=== PATIENT | male | born 1985 | race Caucasian/White ===

== ENCOUNTER 2018-07-24 02:06 | Emergency (ER) | payer BC ==
--- NOTE | 2018-07-24 02:38 | ED Physician Chart ---
ED Chief Complaint/HPI - Patient Information Date Seen:: 07/17/18 Time Seen:: 02:30 Chief Complaint:: back pain History of Present Illness:: Patient was at work tonight and spontaneously developed upper and mid back pain. No trauma. Allergies:: Allergies Allergy/AdvReac Type Severity Reaction Status Date / Time No Known Allergies Allergy Verified 07/17/18 02:54 Vitals:: Vital Signs - 8 hr 07/24/18 02:10 Temp 98.2 F HR 75 RR 18 BP 125/81 O2 Sat % 97 Historian:: Patient Review:: Nurse's Note Reviewed ED Review of Systems - Review of Systems General/Constitutional: No fever, No chills Skin: No skin lesions Head: No headache Eyes: No loss of vision ENT: No earache Neck: No neck pain Cardio Vascular: No chest pain, No palpitations Pulmonary: No SOB GI: No nausea, No vomiting, No diarrhea G/U: No dysuria Musculoskeletal: Bone or joint pain, Back pain, Muscle pain Psychiatric: No prior psych history Hematopoietic: No bruising Allergic/Immuno: No urticaria Neurological: No syncope, No focal symptoms ED Past Medical History - Past Medical History Past Medical History: Other (chronic back pain) Family History: None Social History: Smoker, Alcohol Surgical History: None Psychiatricy History: None Family Medical History - Family Member Mother History Unknown: Yes ED Physical Exam - Physical Examination General/Constitutional: Awake, Well-developed, well-nourished, Alert, No distress, GCS 15, Non-toxic appearing, Ambulatory Other Gen/Cons comments:: 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: Atraumatic Eyes: Lids, conjuctiva normal, PERRL, EOMI Skin: Nl inspection, No rash, No skin lesions, No ecchymosis, Well hydrated, No lymphadenopathy ENMT: External ears, nose nl, Nasal exam nl, Lips, teeth, gums nl Neck: Nontender, Full ROM w/o pain, No JVD, No nuchal rigidity, No bruit, No mass, No stridor Respiratory: Nl effort/Exclusion, Clear to Auscultation, No Wheeze/Rhonchi/Rales Cardio Vascular: RRR, No murmur, gallop, rubs, NL S1 S2 GI: No tenderness/rebounding/guarding, No organomegaly, No hernia, Normal BS's, Nondistended, No mass/bruits, No McBurney tenderness : No CVA tenderness Extremities: No tenderness or effusion, Full ROM, normal strength in all extremities, No edema, Normal digits & nails Neuro/Psych: Alert/oriented, DTR's symmetric, Normal sensory exam, Normal motor strength, Judgement/insight normal, Mood normal, Normal gait, No focal deficits Misc: Normal back, No paraspinal tenderness ED Septic Shock - . Is Septic Shock (SBP<90, OR Lactate>4 mmol\L) present?: No - <6hrs of presentation: Vital Signs: Vital Signs - 8 hr 07/24/18 02:10 Temp 98.2 F HR 75 RR 18 BP 125/81 O2 Sat % 97 ED Reassessment (Disposition) - Reassessment Reassessment Condition:: Unchanged - Diagnosis Diagnosis:: Acute exacerbation of chronic back pain - Aftercare/Follow up Instructions Aftercare/Follow-Up Instructions:: Refer to Discharge Instructions - Patient Disposition Discharge/Transfer:: Home Condition at Disposition:: Stable, Unchanged
== END 2018-07-24 03:10 | disposition home or self-care (01) ==
LOC: ER 02:06
DX: M54.6 Pain in thoracic spine (principal); G89.29 Other chronic pain; F17.200 Nicotine dependence, unspecified, uncomplicated
CPT/HCPCS: 99283; 96372; J1885; Z7502

== ENCOUNTER 2018-08-09 21:08 | Emergency (ER) | payer BC ==
--- NOTE | 2018-08-09 21:35 | ED Physician Chart ---
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 FOOT PAIN Allergies:: Allergies Allergy/AdvReac Type Severity Reaction Status Date / Time No Known Allergies Allergy Verified 07/17/18 02:54 Vitals:: Vital Signs - 8 hr 08/09/18 21:18 Temp 98.4 F HR 89 RR 17 BP 109/58 O2 Sat % 97 ED Review of Systems - Review of Systems General/Constitutional: No fever, No chills, No weight loss, No weakness, No diaphoresis, No edema, No loss of appetite Skin: Skin lesions Head: No headache, No light-headedness Eyes: No loss of vision, No pain, No diplopia ENT: No earache, No nasal drainage, No sore throat, No tinnitus Neck: No neck pain, No swelling, No thyromegaly, No stiffness, No mass noted Cardio Vascular: No chest pain, No palpitations, No PND, No orthopnea, No edema Pulmonary: No SOB, No cough, No sputum, No wheezing GI: No nausea, No vomiting, No diarrhea, No pain, No melena, No hematochezia, No constipation, No hematemesis G/U: No dysuria, No frequency, No hematuria Musculoskeletal: No bone or joint pain, No back pain, No muscle pain Endocrine: No polyuria, No polydipsia Hematopoietic: No lymphadenopathy Allergic/Immuno: Urticaria, No angioedema Neurological: No syncope, No focal symptoms, No weakness, No paresthesia, No headache, No seizure, No dizziness, No confusion, No vertigo ED Past Medical History - Past Medical History Past Medical History: Other (ETOH AND DRUG ABUSE) Family Medical History - Family Member Mother History Unknown: Yes ED Physical Exam - Physical Examination General/Constitutional: Well-developed, well-nourished Head: Atraumatic Eyes: Lids, conjuctiva normal Other Skin comments:: FOOT 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 Is Septic Shock (SBP<90, OR Lactate>4 mmol\L) present?: No - <6hrs of presentation: Vital Signs: Vital Signs - 8 hr 08/09/18 21:18 Temp 98.4 F HR 89 RR 17 BP 109/58 O2 Sat % 97 ED Reassessment (Disposition) - Reassessment Reassessment:: FOOT PAINS WITH DESQUAMATION - Aftercare/Follow up Instructions Medication Prescribed:: DIFLUCAN CLOTRIMAZOLE - Patient Disposition Discharge/Transfer:: Home Condition at Disposition:: Stable
== END 2018-08-09 21:30 | disposition home or self-care (01) ==
LOC: ER 21:08
DX: M79.672 Pain in left foot (principal); M79.671 Pain in right foot; R23.4 Changes in skin texture; Z59.0 Homelessness
CPT/HCPCS: Z7502

== ENCOUNTER 2018-08-17 02:17 | Emergency (ER) | payer BC ==
--- NOTE | 2018-08-17 02:58 | ED Physician Chart ---
ED Chief Complaint/HPI - Patient Information Date Seen:: 08/17/18 Time Seen:: 02:55 Chief Complaint:: sore throat back pain History of Present Illness:: 32 yr old male here for similar complaints at 3 to 3 hodpitals around [facility] n sleeping in the er bed not wanting to talk states his sore throat keeps coming back and his back pain from too much work and too much lifting Allergies:: Allergies Allergy/AdvReac Type Severity Reaction Status Date / Time No Known Allergies Allergy Verified 08/17/18 02:18 Vitals:: Vital Signs - 8 hr 08/17/18 02:20 Temp 98.1 F HR 74 RR 18 BP 110/57 O2 Sat % 99 ED Review of Systems - Review of Systems General/Constitutional: No fever, No chills, No weight loss, No weakness, No diaphoresis, No edema, No loss of appetite Skin: No skin lesions, No rash, No bruising Head: No headache, No light-headedness Eyes: No loss of vision, No pain, No diplopia ENT: Sore throat Neck: No neck pain, No swelling, No thyromegaly, No stiffness, No mass noted Cardio Vascular: No chest pain, No palpitations, No PND, No orthopnea, No edema Pulmonary: No SOB, No cough, No sputum, No wheezing GI: No nausea, No vomiting, No diarrhea, No pain, No melena, No hematochezia, No constipation, No hematemesis G/U: No dysuria, No frequency, No hematuria Musculoskeletal: Back pain Endocrine: No polyuria, No polydipsia Psychiatric: No prior psych history, No depression, No anxiety, No suicidal ideation Hematopoietic: No bruising, No lymphadenopathy Allergic/Immuno: No urticaria, No angioedema Neurological: No syncope, No focal symptoms, No weakness, No paresthesia, No headache, No seizure, No dizziness, No confusion, No vertigo Family Medical History - Family Member Mother History Unknown: Yes ED Physical Exam - Physical Examination General/Constitutional: Awake, Well-developed, well-nourished, Alert, No distress, GCS 15, Non-toxic appearing, Ambulatory Head: Atraumatic Eyes: Lids, conjuctiva normal, PERRL, EOMI Skin: Nl inspection, No rash, No skin lesions, No ecchymosis, Well hydrated, No lymphadenopathy ENMT: External ears, nose nl, Nasal exam nl, Lips, teeth, gums nl Neck: Nontender, Full ROM w/o pain, No JVD, No nuchal rigidity, No bruit, No mass, No stridor Respiratory: Nl effort/Exclusion, Clear to Auscultation, No Wheeze/Rhonchi/Rales Cardio Vascular: RRR, No murmur, gallop, rubs, NL S1 S2 GI: No tenderness/rebounding/guarding, No organomegaly, No hernia, Normal BS's, Nondistended, No mass/bruits, No McBurney tenderness : No CVA tenderness Extremities: No tenderness or effusion, Full ROM, normal strength in all extremities, No edema, Normal digits & nails Neuro/Psych: Alert/oriented, DTR's symmetric, Normal sensory exam, Normal motor strength, Judgement/insight normal, Mood normal, Normal gait, No focal deficits Misc: Normal back, No paraspinal tenderness ED Assessment - Assessment General Assessment: sore throat back pain ED Septic Shock - . Is Septic Shock (SBP<90, OR Lactate>4 mmol\L) present?: No - <6hrs of presentation: Vital Signs: Vital Signs - 8 hr 08/17/18 02:20 Temp 98.1 F HR 74 RR 18 BP 110/57 O2 Sat % 99 ED Reassessment (Disposition) - Reassessment Reassessment:: sore throat back pain - Diagnosis Diagnosis:: as above - Patient Disposition Discharge/Transfer:: Home Condition at Disposition:: Stable
== END 2018-08-17 03:13 | disposition home or self-care (01) ==
LOC: ER 02:17
DX: J02.9 Acute pharyngitis, unspecified (principal); M54.9 Dorsalgia, unspecified
CPT/HCPCS: Z7502

== ENCOUNTER 2018-08-19 03:54 | Emergency (ER) | payer BC ==
--- NOTE | 2018-08-19 04:15 | ED Physician Chart ---
ED Chief Complaint/HPI - Patient Information Date Seen:: 08/19/18 Time Seen:: 04:10 Chief Complaint:: Sore throat History of Present Illness:: 32 yo homeless male had recently been a frequent visitor to [facility] complaining "sore throat" but did not fill medication prescribed by ER physician. Pt instead would leave after eating some food at ER. This morning , pt stated "sore throat for 2-3 days". Pt stated that he had subjective fever, headache. Pt also had upper back pain. Allergies:: Allergies Allergy/AdvReac Type Severity Reaction Status Date / Time No Known Allergies Allergy Verified 08/17/18 02:18 Vitals:: Vital Signs - 8 hr 08/19/18 04:04 Temp 98.2 F HR 82 RR 17 BP 109/67 O2 Sat % 97 ED Review of Systems - Review of Systems General/Constitutional: Fever Skin: No bruising Head: No headache Eyes: No pain ENT: Sore throat Neck: Neck pain Cardio Vascular: No chest pain Pulmonary: No SOB GI: No nausea, No vomiting Musculoskeletal: Back pain Neurological: No focal symptoms ED Past Medical History - Past Medical History Past Medical History: Other (back pain) Social History: Non Smoker (former smoker), Alcohol, Illicit Drug Use (marijuana ) Surgical History: None Family Medical History - Family Member Mother History Unknown: Yes ED Physical Exam - Physical Examination General/Constitutional: Awake, Alert Head: Atraumatic Eyes: PERRL Skin: No ecchymosis ENMT: Nasal exam nl Neck: No nuchal rigidity Respiratory: Clear to Auscultation Cardio Vascular: RRR, No murmur, gallop, rubs, NL S1 S2 GI: No tenderness/rebounding/guarding Extremities: normal strength in all extremities Neuro/Psych: No focal deficits ED Assessment - Assessment General Assessment: Sore throat Assessment/Comments:: Observe ED Septic Shock - . Is Septic Shock (SBP<90, OR Lactate>4 mmol\\L) present?: No - <6hrs of presentation: Vital Signs: Vital Signs - 8 hr 08/19/18 04:04 Temp 98.2 F HR 82 RR 17 BP 109/67 O2 Sat % 97 ED Reassessment (Disposition) - Reassessment Reassessment:: After being offered some food, pt agreed to eat the food right away and leave ER Reassessment Condition:: Improved - Patient Disposition Discharge/Transfer:: Home
== END 2018-08-19 04:20 | disposition home or self-care (01) ==
LOC: ER 03:54
DX: J02.9 Acute pharyngitis, unspecified (principal); M54.6 Pain in thoracic spine; M54.2 Cervicalgia; Z87.891 Personal history of nicotine dependence; Z59.0 Homelessness
CPT/HCPCS: Z7502